=== PATIENT | male | born 1995 | race Caucasian/White ===

== ENCOUNTER 2017-07-08 16:59 | Emergency (ER) | payer SELFPAY ==
[~2017-07-08] VITALS: Ht 185.4 cm; Wt 88.5 kg
[2017-07-08 17:01] VITALS: BP 115/72; PULSE 62; RESP 20; TEMP 98.5; O2SAT 98
[2017-07-08] MEDS ORDERED: CEPH500C PO (20:24)
--- NOTE | 2017-07-08 20:28 | PD ---
HPI Chief Complaint: ENT Complaint Time Seen by Provider: 20:24 Travel History International Travel<30 days: No Contact w/Intl Traveler<30days: No Traveled to known affect area: No History of Present Illness HPI 22-year-old white male presents to emergency department with a 3-4 day history of runny nose, sneezing, coughing followed by a red watery swollen right eye. He states that he was told that he has pinkeye. The patient states that on occasion he coughs and clears his throat and notices a small amount of blood. No active bleeding. He states that he has not been running a fever. He denies any shortness of breath or wheezing. No abdominal pain. No urine symptoms. No stool changes. PFSH Past Medical History Medical History: Denies Significant Hx Tetanus Vaccination: < 5 Years Past Surgical History Surgical History: No Previous Surgery Social History Alcohol Use: No Tobacco Use: No Allergies-Medications (Allergen,Severity, Reaction): Coded Allergies: No Known Allergies (Unverified , 07/08/17) Reported Meds & Prescriptions Reported Meds & Active Scripts Active Cephalexin 500 Mg Cap 500 Mg PO Q6H Review of Systems Except as stated in HPI: all other systems reviewed are Neg Physical Exam Narrative GENERAL: Well-developed, well-nourished in no acute distress. Nontoxic appearing. HEAD: Normocephalic, atraumatic. EYES: Pupils equal round and reactive. Extraocular motions intact. No scleral icterus. No injection or drainage in the left eye. The right eye upper eyelid is mildly edematous. His eyes injected. There is a small amount of clear tearing. No mucoid drainage. No obvious foreign bodies. ENT: TMs clear without erythema. The external auditory canals clear. Nose: clear . Posterior pharynx is pink and moist. No tonsillar edema or exudate. Uvula midline. Airway patent. NECK: Trachea midline.Supple, nontender, moves head freely. No central bony tenderness or spasm. CARDIOVASCULAR: Regular rate and rhythm without murmurs, gallops, or rubs. RESPIRATORY: Clear to auscultation. Breath sounds equal bilaterally. No wheezes , rales, or rhonchi. GASTROINTESTINAL: Abdomen soft, non-tender, nondistended. No hepato-splenomegaly , or palpable masses. No guarding. EXTREMITIES: No clubbing, cyanosis, or edema. No joint tenderness, effusion, or edema noted. BACK: Nontender without deformity or crepitance. No flank tenderness. Data Data Last Documented VS Vital Signs Date Time Temp Pulse Resp B/P (MAP) Pulse Ox O2 Delivery O2 Flow Rate FiO2 07/08/17 17:01 98.5 62 20 115/72 (86) 98 Room Air MDM Medical Decision Making Medical Screen Exam Complete: Yes Emergency Medical Condition: Yes Medical Record Reviewed: Yes Differential Diagnosis MDM: High Differential diagnoses: Pneumonia, bronchitis, URI, conjunctivitis (viral versus bacterial) Narrative Course The patient has symptoms of a viral upper respiratory tract infection. Patient has congestion, cough, sneezing, and a red watery eye. I've agreed to give the patient prescription for Keflex which I would like him to hold for the next 3-4 days if symptoms worsen he may fill. Patient is aware I suspect this is mostly a virus and should just be treated subjectively. Diagnosis Primary Impression: URI (upper respiratory infection) Qualified Codes: J06.9 - Acute upper respiratory infection, unspecified; B97.89 - Other viral agents as the cause of diseases classified elsewhere Patient Instructions: General Instructions Additional Instructions: Rest. Increase fluids. Tylenol and Advil. Robitussin-DM. Wash your face with baby shampoo and apply warm compresses to your eyes. Strict handwashing. 50 mg of Benadryl at night for sleep. Failure Keflex prescription if symptoms worsen or if symptoms do not resolve in the next 3-4 days. Followup with your Dr. in one week. Return to the ER for any problems. Med/Other Pt SpecificInfo: Prescription(s) given Scripts Cephalexin (Cephalexin) 500 Mg Cap 500 MG PO Q6H for Infection, #40 CAP 0 Refills Prov: Tatyana Alcantara DO 07/08/17 Disposition: 01 DISCHARGE HOME Condition: Stable Elton Pantoja Jul 08, 2017 20:28
== END 2017-07-08 20:43 | disposition home or self-care (01) ==
LOC: NEPK 16:59
DX: J06.9 Acute upper respiratory infection, unspecified (principal)
CPT/HCPCS: 99283